=== PATIENT | male | born 1980 | race Caucasian/White ===

== ENCOUNTER 2023-01-18 13:52 | Emergency (ER) | payer BC, OTHER ==
[~2023-01-18] VITALS: Ht 182.9 cm; Wt 107.7 kg
[2023-01-18 13:52] VITALS: TEMP 98
[2023-01-18] MEDS ORDERED: PERCOCET 5MG/325MG TAB PO ONE ×2 (19:15→19:45)
[2023-01-18] MEDS ORDERED: MENT118S2 TP (19:37)
[2023-01-18] MEDS ORDERED: ASPE4PAD TOP (19:37)
[2023-01-18] MEDS ORDERED: PERC5TAB12 PO (19:41)
[2023-01-18 19:47] VITALS: BP 161/96; O2SAT 98
== END 2023-01-18 20:00 | disposition home or self-care (01) ==
LOC: M ED 13:52
DX: S42.032A Displaced fracture of lateral end of left clavicle, initial encounter for closed fracture (principal); S29.9XXA Unspecified injury of thorax, initial encounter; V49.40XA Driver injured in collision with unspecified motor vehicles in traffic accident, initial encounter; Y92.410 Unspecified street and highway as the place of occurrence of the external cause; Z79.899 Other long term (current) drug therapy